=== PATIENT | female | born 1930 | race Caucasian/White ===

== ENCOUNTER 2019-05-08 08:22 | Emergency (ER) | payer MEDICARE, BC ==
[2019-05-08] MEDS ORDERED: Sodium Chloride 0.9% 10 ML Syringe FLUSH PRN (08:55)
[2019-05-08] MEDS ORDERED: Sodium Chloride 0.9% 250 ML IV SCH (10:30)
[2019-05-08] MEDS ORDERED: Iopamidol 755 Mg/ML 200 ML Bottle IV ONE (10:30)
--- NOTE | 2019-05-08 11:15 | EDM.PDOC ---
ED HPI GENERAL MEDICAL PROBLEM - General Chief Complaint: Respiratory Problem Stated Complaint: SOB Time Seen by Provider: 05/08/19 08:41 Source of Information: Reports: Patient, Family History Limitations: Reports: No Limitations - History of Present Illness INITIAL COMMENTS - FREE TEXT/NARRATIVE: The patient presents with shortness of breath and nausea. This has been going on for a few days. She was seen by her provider earlier in the week and a UA was done and she was started on bactrim on Saturday. She was not feeling good at that time and now for the past couple of days she has been short of breath with nausea. She does have a little chest discomfort at times. She denies fever, chills, cough, congestion or runny nose. She has a little shortness of breath. She has no abdominal pain, vomiting, diarrhea or dysuria. She has no pain or swelling in her legs. She says exertion makes the shortness of breath worse. She can lay flat when she sleeps. Onset: Gradual Duration: Day(s): Severity: Moderate Improves with: Reports: Immobilization Worsens with: Reports: Movement Associated Symptoms: Reports: Chest Pain, Shortness of Breath. Denies: Cough, Fever/Chills, Headaches, Nausea/Vomiting - Related Data Allergies Allergy/AdvReac Type Severity Reaction Status Date / Time morphine AdvReac Nausea and Verified 05/08/19 10:31 Vomiting Home Meds: Home Meds Calcium Carbonate/Vitamin D3 [Calcium 600 + Vit D 200] 05/08/19 [History] Cholecalciferol (Vitamin D3) [Vitamin D] 05/08/19 [History] Cyanocobalamin (Vitamin B-12) [Vitamin B-12] 05/08/19 [History] Losartan [Cozaar] 50 mg PO DAILY 05/08/19 [History] Methimazole [Tapazole] 5 mg PO DAILY 05/08/19 [History] Sulfamethoxazole/Trimethoprim [Bactrim 400-80 MG] 1 tab PO BID 05/08/19 [History ] Past Medical History HEENT History: Reports: Cataract, Other (See Below) Other HEENT History: glasses Cardiovascular History: Reports: Hypertension Gastrointestinal History: Reports: Other (See Below) Other Gastrointestinal History: colon cancer [employer] History: Reports: Musculoskeletal History: Reports: Other (See Below) Other Musculoskeletal History: r shoulder surgery, back surgery, left foot surgery Endocrine/Metabolic History: Reports: Hyperthyroidism Oncologic (Cancer) History: Reports: Colon, Other (See Below) Other Oncologic History: skin-nose/arm Dermatologic History: Reports: Other (See Below) Other Dermatologic History: skin cancer nose and arm - Past Surgical History HEENT Surgical History: Reports: Tonsillectomy, Other (See Below) Other HEENT Surgeries/Procedures: left eye blood clot removed Female Surgical History: Reports: Nephrectomy Other Female Surgeries/Procedures: l kidney removed 1996 Musculoskeletal Surgical History: Reports: Carpal Tunnel, Shoulder Surgery Social & Family History - Tobacco Use Smoking Status *Q: Never Smoker Second Hand Smoke Exposure: No - Caffeine Use Caffeine Use: Reports: Coffee - Recreational Drug Use Recreational Drug Use: No ED ROS GENERAL - Review of Systems Review Of Systems: See Below Constitutional: Reports: No Symptoms HEENT: Reports: No Symptoms Respiratory: Reports: Shortness of Breath. Denies: Cough Cardiovascular: Reports: No Symptoms Endocrine: Reports: No Symptoms GI/Abdominal: Reports: Nausea. Denies: Abdominal Pain : Reports: No Symptoms Musculoskeletal: Reports: No Symptoms Skin: Reports: No Symptoms ED EXAM, GENERAL - Physical Exam Exam: See Below Exam Limited By: No Limitations General Appearance: Alert, No Apparent Distress Ears: Normal External Exam Nose: Normal Inspection Head: Atraumatic, Normocephalic Neck: Normal Inspection Respiratory/Chest: No Respiratory Distress, Decreased Breath Sounds Cardiovascular: Regular Rate, Rhythm, No Edema, No Murmur GI/Abdominal: Soft, Non-Tender, No Organomegaly, No Mass Back Exam: Normal Inspection Extremities: Normal Inspection EKG INTERPRETATION EKG Date: 05/08/19 Time: 09:01 Rhythm: NSR Rate (Beats/Min): 82 [place]: Normal P-Wave: Present QRS: RBBB QT: Normal EKG Interpretation Comments: Repol abnormality through inferior and anterior and lateral leads Course - Vital Signs Last Recorded V/S: Last Vital Signs Temp 98.4 F 05/08/19 08:29 Pulse 102 H 05/08/19 08:29 Resp 20 05/08/19 08:29 BP 179/89 H 05/08/19 08:29 Pulse Ox 97 05/08/19 08:29 - Orders/Labs/Meds Orders: Active Orders 24 hr Category Date Time Status Cardiac Monitoring [RC] . DIRECTED Care 05/08/19 08:55 Active EKG Documentation Completion [RC] STAT Care 05/08/19 08:56 Active Oxygen Therapy [RC] PRN Care 05/08/19 08:55 Active Peripheral IV Care [RC] . DIRECTED Care 05/08/19 08:56 Active Sodium Chloride 0.9% [Normal Saline] 250 ml Med 05/08/19 10:30 Active IV ASDIRECTED Sodium Chloride 0.9% [Saline Flush] Med 05/08/19 08:55 Active 10 ml FLUSH ASDIRECTED PRN Peripheral IV Insertion Adult [OM.PC] Stat Oth 05/08/19 08:55 Ordered Medication Orders Sodium Chloride (Normal Saline) 250 mls @ 80 mls/hr IV ASDIRECTED SCOTT Sodium Chloride (Saline Flush) 10 ml FLUSH ASDIRECTED PRN PRN Reason: Keep Vein Open Last Admin: 05/08/19 10:58 Dose: 10 ml Labs: Laboratory Tests 05/08/19 05/08/19 05/08/19 Range/Units 08:45 08:55 08:55 WBC 4.53 (3.98-10.04) K/mm3 RBC 4.02 (3.98-5.22) M/mm3 Hgb 11.7 (11.2-15.7) gm/dl Hct 36.1 (34.1-44.9) % MCV 89.8 (79.4-94.8) fl MCH 29.1 (25.6-32.2) pg MCHC 32.4 (32.2-35.5) g/dl RDW Std Deviation 41.7 (36.4-46.3) fL Plt Count 248 (182-369) K/mm3 MPV 9.3 L (9.4-12.3) fl Neut % (Auto) 75.1 H (34.0-71.1) % Lymph % (Auto) 17.0 L (19.3-51.7) % [place] % (Auto) 6.6 (4.7-12.5) % Eos % (Auto) 0.9 (0.7-5.8) Baso % (Auto) 0.2 (0.1-1.2) % Neut # (Auto) 3.40 (1.56-6.13) K/mm3 Lymph # (Auto) 0.77 L (1.18-3.74) K/mm3 [place] # (Auto) 0.30 (0.24-0.36) K/mm3 Eos # (Auto) 0.04 (0.04-0.36) K/mm3 Baso # (Auto) 0.01 (0.01-0.08) K/mm3 D-Dimer, Quantitative 1.07 H (0.19-0.50) mg/L Sodium (136-145) mEq/L Potassium (3.5-5.1) mEq/L Chloride (98-107) mEq/L Carbon Dioxide (21-32) mEq/L Anion Gap (5-15) BUN (7-18) mg/dL Creatinine (0.55-1.02) mg/dL Est Cr Clr Drug Dosing mL/min Estimated GFR (MDRD) (>60) mL/min BUN/Creatinine Ratio (14-18) Glucose (83-115) mg/dL Calcium (8.5-10.1) mg/dL Total Bilirubin (0.2-1.0) mg/dL AST (15-37) U/L ALT (14-59) U/L Alkaline Phosphatase (46-116) U/L Troponin I (0.00-0.056) ng/mL C-Reactive Protein (<1.0) mg/dL NT-Pro-B Natriuret Pep 7718 H (0-450) pg/mL Total Protein (6.4-8.2) g/dl Albumin (3.4-5.0) g/dl Globulin gm/dL Albumin/Globulin Ratio (1-2) 05/08/19 Range/Units 08:55 WBC (3.98-10.04) K/mm3 RBC (3.98-5.22) M/mm3 Hgb (11.2-15.7) gm/dl Hct (34.1-44.9) % MCV (79.4-94.8) fl MCH (25.6-32.2) pg MCHC (32.2-35.5) g/dl RDW Std Deviation (36.4-46.3) fL Plt Count (182-369) K/mm3 MPV (9.4-12.3) fl Neut % (Auto) (34.0-71.1) % Lymph % (Auto) (19.3-51.7) % [place] % (Auto) (4.7-12.5) % Eos % (Auto) (0.7-5.8) Baso % (Auto) (0.1-1.2) % Neut # (Auto) (1.56-6.13) K/mm3 Lymph # (Auto) (1.18-3.74) K/mm3 [place] # (Auto) (0.24-0.36) K/mm3 Eos # (Auto) (0.04-0.36) K/mm3 Baso # (Auto) (0.01-0.08) K/mm3 D-Dimer, Quantitative (0.19-0.50) mg/L Sodium 133 L (136-145) mEq/L Potassium 3.7 (3.5-5.1) mEq/L Chloride 100 (98-107) mEq/L Carbon Dioxide 23 (21-32) mEq/L Anion Gap 13.7 (5-15) BUN 13 (7-18) mg/dL Creatinine 1.1 H (0.55-1.02) mg/dL Est Cr Clr Drug Dosing 25.39 mL/min Estimated GFR (MDRD) 47 (>60) mL/min BUN/Creatinine Ratio 11.8 L (14-18) Glucose 156 H (83-115) mg/dL Calcium 8.8 (8.5-10.1) mg/dL Total Bilirubin 0.6 (0.2-1.0) mg/dL AST 26 (15-37) U/L ALT 21 (14-59) U/L Alkaline Phosphatase 96 (46-116) U/L Troponin I 0.120 H* (0.00-0.056) ng/mL C-Reactive Protein 0.2 (<1.0) mg/dL NT-Pro-B Natriuret Pep (0-450) pg/mL Total Protein 7.0 (6.4-8.2) g/dl Albumin 3.5 (3.4-5.0) g/dl Globulin 3.5 gm/dL Albumin/Globulin Ratio 1.0 (1-2) Meds: Medications Generic Name Dose Route Start Last Admin Trade Name Freq PRN Reason Stop Dose Admin Sodium Chloride 250 mls @ 80 mls/hr 05/08/19 10:30 Normal Saline IV ASDIRECTED SCOTT Sodium Chloride 10 ml 05/08/19 08:55 05/08/19 10:58 Saline Flush FLUSH 10 ml ASDIRECTED PRN Administration Keep Vein Open Discontinued Medications Generic Name Dose Route Start Last Admin Trade Name Lisa PRN Reason Stop Dose Admin Iopamidol 100 ml 05/08/19 10:30 05/08/19 10:58 Isovue-370 (76%) IV 05/08/19 10:31 100 ml ONETIME ONE Administration - Re-Assessments/Exams Free Text/Narrative Re-Assessment/Exam: 05/08/19 11:18 I ordered an IV saline lock, EKG, CXR and labs. Her EKG shows a NSR, RBBB, repol abnormalities in the inferior, anterior and lateral leads. Her CXR shows a large effusion to the left. 05/08/19 11:20 Her CBC looks good. Her D-dimer was elevated at 1.07. Her Na was low at 133. Her creatinine was elevated at 1.1. Her torponin was elevated at 0.12. Her BNP is elevated at 7718. I have ordered a CT angio of her chest. 05/08/19 11:[address] shows bilateral pleural effusions with atelectasis. No findings of pulmonary embolism. Cardiomegaly. Mild aneurysmal dilatation of the ascending aorta. She has CHF with an effusion. She had a stress test and her EF was 35%. I wanted to admit her but she refused. Her oxygen saturations were good at 96% to 97%. I feel a little better sending her home. I will need to get her on Lasix 20mg daily. I will have her follow up with Dr Rubalcava on 05/19 at 8:10 am. Departure - Departure Time of Disposition: 12:00 Disposition: Home, Self-Care 01 Condition: Good Clinical Impression: Pleural effusion CHF (congestive heart failure) Qualifiers: Heart failure type: systolic Heart failure chronicity: chronic Qualified Code(s ): I50.22 - Chronic systolic (congestive) heart failure - Discharge Information *PRESCRIPTION DRUG MONITORING PROGRAM REVIEWED*: No *COPY OF PRESCRIPTION DRUG MONITORING REPORT IN PATIENT DELILAH: No Referrals: Isra Rubalcava MD [Primary Care Provider] - 1 Week Forms: ED Department Discharge Additional Instructions: Take your medication as prescribed. Take lasix daily for 1 week. Follow up with Dr Rubalcava April 18 at 8:10 am. Please return if you are worse. - My Orders Last 24 Hours: My Active Orders 05/08/19 08:55 Cardiac Monitoring [RC] . DIRECTED Oxygen Therapy [RC] PRN Sodium Chloride 0.9% [Saline Flush] 10 ml FLUSH ASDIRECTED PRN Peripheral IV Insertion Adult [OM.PC] Stat 05/08/19 08:56 EKG Documentation Completion [RC] STAT Peripheral IV Care [RC] . DIRECTED 05/08/19 10:30 Sodium Chloride 0.9% [Normal Saline] 250 ml IV ASDIRECTED - Assessment/Plan Last 24 Hours: My Active Orders 05/08/19 08:55 Cardiac Monitoring [RC] . DIRECTED Oxygen Therapy [RC] PRN Sodium Chloride 0.9% [Saline Flush] 10 ml FLUSH ASDIRECTED PRN Peripheral IV Insertion Adult [OM.PC] Stat 05/08/19 08:56 EKG Documentation Completion [RC] STAT Peripheral IV Care [RC] . DIRECTED 05/08/19 10:30 Sodium Chloride 0.9% [Normal Saline] 250 ml IV ASDIRECTED
--- NOTE | 2019-05-08 11:17 | CR ---
Chest: Two views of the chest were obtained. Comparison: Prior chest x-ray of 11/07/09. Moderately large left-sided pleural effusion is seen. Small right-sided pleural effusion is noted. Heart is enlarged. Pulmonary vessels may be minimally congested. Scoliosis is noted within the spine with degenerative change. Surgical clips are seen within the abdomen. Impression: 1. Moderately large left-sided pleural effusion and small right-sided pleural effusion. 2. Other findings are suspicious for mild CHF. Diagnostic code #3
--- NOTE | 2019-05-08 11:31 | CT ---
CT chest Technique: Multiple axial sections through the chest were obtained. Intravenous contrast was utilized. Study performed as a pulmonary angiogram protocol. Comparison: No prior chest CT is available. Findings: Pulmonary arteries are well-opacified. No filling defects are seen to indicate pulmonary embolism. Moderate sized left sided pleural effusion and small right sided pleural effusion is noted. Atherosclerotic change is noted within the thoracic aorta. Slight aneurysmal dilatation of the ascending aorta is seen at 3.2 cm. Moderate coronary artery calcification is noted. Heart is enlarged. Mild atelectasis seen within the right lung base. Moderate atelectasis seen within the left lung base. Scoliosis and degenerative change are noted within the spine. No acute osseous finding is appreciated. Impression: 1. Bilateral pleural effusions with atelectasis. 2. No findings of pulmonary embolism. 3. Cardiomegaly. 4. Mild aneurysmal dilatation of the ascending aorta. Diagnostic code #3
== END 2019-05-08 12:10 | disposition home or self-care (01) ==
LOC: JD.ED 08:22
DX: J90 Pleural effusion, not elsewhere classified (principal); I11.0 Hypertensive heart disease with heart failure; I50.22 Chronic systolic (congestive) heart failure; Z88.5 Allergy status to narcotic agent; Z79.899 Other long term (current) drug therapy
CPT/HCPCS: 36415; 71046; 71275; 80053; 83880; 84484; 85025; 85379; 86140; 93005; 99285; Q9967; 93010; 99284